=== PATIENT | female | born 1995 | race African-American/Black ===

== ENCOUNTER 2017-11-25 16:16 | Emergency (ER) | payer SELFPAY ==
[~2017-11-25] VITALS: Ht 175.3 cm; Wt 79.4 kg
[2017-11-25] MEDS ORDERED: SODIUM CHLORIDE 0.9% 1,000 ML IVB ONE (17:06)
[2017-11-25] MEDS ORDERED: PANTOPRAZOLE 40 MG/10 ML VIAL IV STA (17:06)
[2017-11-25 17:07] LABS: Basophils # (auto) 0.1 uL; Eosinophils # (auto) 0 uL; Hemoglobin 11.4 g/dL (12.2-16.2); Monocytes # (auto) 0.3 uL
[2017-11-25 17:09] LABS: Basophils % (auto) 0.6 % (0.0-2.0); Hematocrit 36.1 % (36.0-46.0); Lymphocytes # (auto) 0.7 uL; Lymphocytes % (auto) 7.4 % (10.0-50.0); Mean Corpuscular Hemoglobin 23.9 pg (28.0-32.0); Mean Corpuscular Hgb Conc. 31.4 g/dL (32.0-36.0); Mean Corpuscular Volume 76.1 fL (80.0-100.0); Monocytes % (auto) 3.4 % (0.0-12.0); Neutrophils # (auto) 7.9 uL; Neutrophils % (auto) 88.6 % (37.0-80.0); Platelet Count (auto) 273 10^3/uL (140-450); Red Blood Cells 4.75 10^6/uL (4.0-5.20); Red Cell Distribution Width 17.8 % (11.8-14.3)
[2017-11-25] MEDS ORDERED: ONDANSETRON HCL 4 MG/2 ML VIAL IV ONE (17:15)
[2017-11-25] MEDS ORDERED: MORPHINE SULF INJ 2 MG/ML SYRINGE 1ML IV ONE (17:15)
[2017-11-25 17:26] LABS: Albumin 4.1 g/dL (3.4-5.0); BUN/Creatinine Ratio 15.4; Bilirubin, Total 0.8 mg/dL (0.2-1.0); Calcium 8.8 mg/dL (8.5-10.1); Potassium 3.6 mmol/L (3.5-5.1); Total Protein 7.7 g/dL (6.4-8.2)
[2017-11-25] MEDS ORDERED: NALBUPHINE HCL 10 MG/1ml INJECTION IV ONE (18:45)
[2017-11-25 20:36] LABS: Urine Bacteria FEW /hpf (None Seen); Urine Blood 3+ /uL (Negative); Urine Hyaline Cast FEW /lpf (0 - 2); Urine Mucus FEW (None Seen); Urine Specific Gravity 1.024 (1.001-1.035); Urine WBC 18 /hpf (0 - 5)
[2017-11-25 21:00] VITALS: BP 142/62
[2017-11-25] MEDS ORDERED: cefTRIAXone 1GM/10ml IVPUSH 10 ML IV ONE (21:00)
== END 2017-11-25 20:51 | disposition home or self-care (01) ==
LOC: ER 16:21
DX: N39.0 Urinary tract infection, site not specified (principal); R11.2 Nausea with vomiting, unspecified; R19.7 Diarrhea, unspecified
CPT/HCPCS: 36415; 74176; 80053; 81001; 83690; 84702; 85025; 94761; 96361; 96374; 96375; 99285; C9113; J2270; J2300; J2405

== ENCOUNTER 2018-01-26 19:32 | Emergency (ER) | payer SELFPAY ==
[~2018-01-26] VITALS: Ht 175.3 cm; Wt 80.7 kg
[2018-01-26 21:08] VITALS: BP 125/69
[2018-01-26 21:23] LABS: Basophils # (auto) 0 uL; Eosinophils # (auto) 0 uL; Lymphocytes # (auto) 0.6 uL; Red Blood Cells 4.66 10^6/uL (4.0-5.20)
[2018-01-26 21:26] LABS: Basophils % (auto) 0.6 % (0.0-2.0); Hemoglobin 11.4 g/dL (12.2-16.2); Lymphocytes % (auto) 7.3 % (10.0-50.0); Mean Corpuscular Hemoglobin 24.5 pg (28.0-32.0); Mean Corpuscular Hgb Conc. 31.8 g/dL (32.0-36.0); Mean Corpuscular Volume 77.2 fL (80.0-100.0); Monocytes # (auto) 0.3 uL; Monocytes % (auto) 3.6 % (0.0-12.0); Neutrophils # (auto) 7.4 uL; Neutrophils % (auto) 88.5 % (37.0-80.0); Platelet Count (auto) 285 10^3/uL (140-450); Red Cell Distribution Width 18.6 % (11.8-14.3); White Blood Cell 8.4 10^3/uL (4.4-10.8)
[2018-01-26 21:43] LABS: Albumin 4.1 g/dL (3.4-5.0); BUN/Creatinine Ratio 12.5; Bilirubin, Total 0.8 mg/dL (0.2-1.0); Calcium 8.7 mg/dL (8.5-10.1); Magnesium 2.3 mg/dL (1.6-2.6); Potassium 3.9 mmol/L (3.5-5.1); Total Protein 7.9 g/dL (6.4-8.2)
== END 2018-01-26 22:15 | disposition left against medical advice (07) ==
LOC: ER 19:32
DX: R10.31 Right lower quadrant pain (principal); R11.2 Nausea with vomiting, unspecified; Z53.21 Procedure and treatment not carried out due to patient leaving prior to being seen by health care provider
CPT/HCPCS: 36415; 80053; 83690; 83735; 84702; 85025

== ENCOUNTER 2018-01-27 02:41 | Emergency (ER) | payer SELFPAY ==
[~2018-01-27] VITALS: Ht 175.3 cm; Wt 80.7 kg
[2018-01-27] MEDS ORDERED: KETOROLAC TROMETH 30 MG/ML 1ML VIAL IV ONE (04:30)
[2018-01-27 05:09] LABS: Urine Bacteria NONE SEEN /hpf (None Seen); Urine Blood 3+ /uL (Negative); Urine Mucus FEW (None Seen); Urine Specific Gravity 1.027 (1.001-1.035); Urine WBC 12 /hpf (0 - 5)
[2018-01-27] MEDS ORDERED: NALBUPHINE HCL 10 MG/1ml INJECTION IV ONE (05:15)
[2018-01-27] MEDS ORDERED: MORPHINE SULF INJ 2 MG/ML SYRINGE 1ML IV ONE (05:15)
[2018-01-27 05:21] LABS: Alcohol, Urine < 3.0 mg/dL (0-5); Amphetamine Screen, Urine NEGATIVE (NEGATIVE); Barbiturate Scree,Urine NEGATIVE (NEGATIVE); Benzodiazephine Screen, Urine NEGATIVE (NEGATIVE); Cannabinoid Screen, Urine NEGATIVE (NEGATIVE); Cocaine Screen, Urine NEGATIVE (NEGATIVE); Opiate Scree,Urine NEGATIVE (NEGATIVE); Phencyclidine Screen, Urine NEGATIVE (NEGATIVE)
[2018-01-27] MEDS ORDERED: ONDANSETRON HCL 4 MG/2 ML VIAL IV ONE (05:30)
[2018-01-27 05:55] VITALS: BP 114/76
== END 2018-01-27 05:38 | disposition home or self-care (01) ==
LOC: EDBD 02:41 → ER 02:45
DX: N39.0 Urinary tract infection, site not specified (principal)
CPT/HCPCS: 74176; 80307; 81001; 96374; 96375; 99285; J1885; J2270; J2405

== ENCOUNTER → 2018-02-01 | Outpatient (CLI) | payer SELFPAY ==
[2018-02-01 10:28] LABS: Basophils # (auto) 0.1 uL; Eosinophils # (auto) 0.1 uL; Hemoglobin 11.3 g/dL (12.2-16.2); Lymphocytes # (auto) 1.5 uL; Monocytes # (auto) 0.4 uL; Nucleated Red Blood Cells % 0.1 %; White Blood Cell 4.1 10^3/uL (4.4-10.8)
[2018-02-01 10:33] LABS: Basophils % (auto) 3.3 % (0.0-2.0); Hematocrit 36.1 % (36.0-46.0); Lymphocytes % (auto) 35.7 % (10.0-50.0); Mean Corpuscular Hemoglobin 24.3 pg (28.0-32.0); Mean Corpuscular Hgb Conc. 31.4 g/dL (32.0-36.0); Mean Corpuscular Volume 77.6 fL (80.0-100.0); Monocytes % (auto) 10.9 % (0.0-12.0); Neutrophils # (auto) 1.9 uL; Neutrophils % (auto) 47.1 % (37.0-80.0); Platelet Count (auto) 292 10^3/uL (140-450); Red Blood Cells 4.65 10^6/uL (4.0-5.20); Red Cell Distribution Width 18.1 % (11.8-14.3)
[2018-02-01 11:49] LABS: Leuteinizing Hormone 5.8 IU/L
[2018-02-01 11:50] LABS: Follicle Stimulating Hormone 5.32 IU/L (SEE BELOW)
== END | disposition home or self-care (01) ==
LOC: LAB 09:48
PROVIDERS: ATTEND Obstetrics & Gynecology
DX: N92.0 Excessive and frequent menstruation with regular cycle (principal); R10.9 Unspecified abdominal pain
CPT/HCPCS: 36415; 82670; 83001; 83002; 84403; 84443; 85025